=== PATIENT | female | born 1975 | race Caucasian/White ===

== ENCOUNTER → 2016-10-22 | Outpatient (CLI) | payer OTHER | LOC: LAB 15:29 | DX: Z02.83 Encounter for blood-alcohol and blood-drug test (principal) | CPT/HCPCS: 36415 ==

== ENCOUNTER 2016-12-14 14:06 | Emergency (ER) | payer OTHER | END 2016-12-14 15:46 | disposition home or self-care (01) | LOC: ER1 14:06 | DX: N39.0 Urinary tract infection, site not specified (principal); F17.200 Nicotine dependence, unspecified, uncomplicated; Z88.5 Allergy status to narcotic agent | CPT/HCPCS: 81001; 87077; 87086; 87186; 99283 ==